=== PATIENT | male | born 1990 | race Caucasian/White ===

== ENCOUNTER 2019-04-27 05:03 | Emergency (ER) | payer BC ==
[~2019-04-27] VITALS: Ht 172 cm; Wt 68.2 kg
[~2019-04-27 05:03] MED LIST: CIPR-225 PO; HYDR-4226 PO; ONDA8TAB9 PO; SULF1TAB35 PO; TMSL.4C PO
[2019-04-27] MEDS ORDERED: NS IV 1000 ML 1,000 ML IV ONE (05:20)
[2019-04-27 05:28] LABS: BASOPHILS # (AUTO) 0.1 10^3/uL (0.0-0.1); BASOPHILS % (AUTO) 1 % (0-10); EOSINOPHILS # (AUTO) 0.4 10^3/uL (0.0-0.3); EOSINOPHILS % (AUTO) 6 % (0-10); HEMATOCRIT 45 % (40-54); LYMPHOCYTES % (AUTO) 47 % (12-44); MEAN CORPUSCULAR HEMOGLOBIN 30 PG (25-34); MEAN CORPUSCULAR HGB CONC 36 G/DL (32-36); MEAN CORPUSCULAR VOLUME 84 FL (80-99); MEAN PLATELET VOLUME 10.5 FL (7.4-10.4); MONOCYTES # (AUTO) 0.6 X 10^3 (0.0-1.0); MONOCYTES % (AUTO) 9 % (0-12); NEUTROPHILS # (AUTO) 2.3 X 10^3 (1.8-7.8); NEUTROPHILS % (AUTO) 37 % (42-75); PLATELET COUNT 181 10^3/uL (130-400); WHITE BLOOD COUNT 6.3 10^3/uL (4.3-11.0)
[2019-04-27] MEDS ORDERED: KETOROLAC 30 MG/ML VIAL IVP ONE (05:30)
[2019-04-27] MEDS ORDERED: ONDANSETRON 4 MG/2 ML (SDV) Z0FRAN IVP ONE (05:30)
--- NOTE | 2019-04-27 05:31 | NUR ---
Pt started to vomit yellow substance while I was in room drawing up meds.
[2019-04-27 05:48] LABS: ALANINE AMINOTRANSFERASE 24 U/L (0-55); ALBUMIN 4.4 GM/DL (3.2-4.5); ALKALINE PHOSPHATASE 71 U/L (40-136); BILIRUBIN,TOTAL 0.4 MG/DL (0.1-1.0); BUN/CREATININE RATIO 14; CARBON DIOXIDE 22 MMOL/L (21-32); CHLORIDE 108 MMOL/L (98-107); GFR ESTIMATED > 60; GLUCOSE 114 MG/DL (70-105); POTASSIUM 3.3 MMOL/L (3.6-5.0); SODIUM 142 MMOL/L (135-145)
[2019-04-27] MEDS ORDERED: fentaNYL INJECTION 100 MCG/2 ML AMP IVP ONE (06:00)
[2019-04-27] MEDS ORDERED: LACTATED RINGERS 1,000 ML IV ONE ×2 (06:13→06:17)
--- NOTE | 2019-04-27 06:32 | ED General ---
General Chief Complaint: General Problems/Pain Stated Complaint: POSS KIDNEY STONE Nursing Triage Note: Pt ambulates to RM 7 with c/o RLQ pain that started this morning. Pt states he has a Hx of kidney stones and this pain feels similar. Pt also reports some nausea, no vomiting yet. Nursing Sepsis Screen: No Definite Risk Source of Information: Patient Exam Limitations: No Limitations (SASCHA MORGAN MD) History of Present Illness Date Seen by Provider: Apr 27, 2019 Time Seen by Provider: 05:10 Initial Comments This 28-year-old gentleman presents to the emergency room with right flank pain and right groin pain that started early this morning. The pain woke him from sleep. He reports it feels similar to a prior episode of kidney stone. He has had kidney stone requiring lithotripsy in the past. He has associated nausea and vomiting. He denies fever. (SASCHA MROGAN MD) Allergies and Home Medications Allergies Coded Allergies: Penicillins (Verified Allergy, Mild, 04/27/19) Home Medications Ciprofloxacin HCl 500 Mg Tablet, 500 MG PO BID Prescribed by: MARISELA JONES on 05/06/15 180 Hydrocodone/Acetaminophen 1 Each Tablet, 1 EACH PO Q4H PRN for PAIN Prescribed by: MARISELA JONES on 05/06/15 1800 Ondansetron 8 Mg Tab.rapdis, 8 MG PO Q4H PRN for NAUSEA/VOMITING Prescribed by: MARISELA JONES on 05/06/15 1800 Tamsulosin HCl 0.4 Mg Cap, 0.4 MG PO DAILY Prescribed by: MARISELA JONES on 05/06/15 1800 Patient Home Medication List Home Medication List Reviewed: Yes (SASCHA MORGAN MD) Review of Systems Review of Systems Constitutional: no symptoms reported EENTM: no symptoms reported Respiratory: no symptoms reported Cardiovascular: no symptoms reported Gastrointestinal: see HPI Genitourinary: see HPI Musculoskeletal: no symptoms reported Skin: no symptoms reported Psychiatric/Neurological: No Symptoms Reported Hematologic/Lymphatic: No Symptoms Reported Immunological/Allergic: no symptoms reported (SASCHA MORGAN MD) Past Tqzlmjq-Hscxnr-Ggyhxd Hx Past Med/Social Hx: Reviewed Nursing Past Med/Soc Hx (SASCHA MORGAN MD) Patient Social History Alcohol Use: Rarely Uses Recreational Drug Use: No Smoking Status: Never a Smoker 2nd Hand Smoke Exposure: No Recent Foreign Travel: No Contact w/Someone Who Travel: No Recent Infectious Disease Expo: No Recent Hopitalizations: No Physical Abuse: No Sexual Abuse: No Mistreated: No Fear: No (SASCHA MORGAN MD) Immunizations Up To Date Date of Influenza Vaccine: Jan 05, 2015 (SASCHA MORGAN MD) Seasonal Allergies Seasonal Allergies: No (SASCHA MORGAN MD) Past Medical History Surgeries: Yes ("kidney stone blast") Renal (lithotripsy) Respiratory: No Cardiac: No Neurological: No Reproductive Disorders: No HIV/AIDS: No Genitourinary: Yes Kidney Stones Gastrointestinal: No Musculoskeletal: No (WILL SEE CHIROPRACTOR NEEDED) Endocrine: No Loss of Vision: Denies Hearing Impairment: Denies Cancer: No Psychosocial: No Integumentary: No Blood Disorders: No Adverse Reaction/Blood Tranf: No (SASCHA MORGAN MD) Physical Exam Vital Signs Vital Signs - First Documented 04/27/19 05:15 Temp 36.6 Pulse 88 Resp 20 B/P (MAP) 129/83 (98) Pulse Ox 100 O2 Delivery Room Air (TERESA SHIPLEY MD) Vital Signs Capillary Refill : Less Than 3 Seconds (SASCHA MORGAN MD) Height, Weight, BMI Height: 5'7.00" Weight: 125lbs. oz. 56.178938nm; 23.00 BMI Method: General Appearance: WD/WN, Mild Distress HEENT: PERRL/EOMI, Normal ENT Inspection Neck: Normal Inspection Respiratory: Lungs Clear, Normal Breath Sounds, No Accessory Muscle Use Cardiovascular: Regular Rate, Rhythm, No Edema, No Murmur, Normal Peripheral Pulses Gastrointestinal: Normal Bowel Sounds, No Organomegaly, Tenderness (right flank and mid abdomen) Extremity: Normal Inspection, No Pedal Edema Neurologic/Psychiatric: Alert, Oriented x3, No Motor/Sensory Deficits, Normal Mood/Affect, cytology technologist II-XII Norm as Tested (SASCHA MORGAN MD) Progress/Results/Core Measures Suspected Sepsis Recent Fever Within 48 Hours: No Infection Criteria Present: None New/Unexplained Altered Menta: No Sepsis Screen: No Definite Risk SIRS Temperature: Pulse: 88 Respiratory Rate: 20 Laboratory Tests 04/27/19 05:20: White Blood Count 6.3 Blood Pressure 129 /83 Mean: 98 Laboratory Tests 04/27/19 05:20: Creatinine 1.00, Platelet Count 181, Total Bilirubin 0.4 (SASCHA MORGAN MD) Results/Orders Lab Results Laboratory Tests Test 04/27/19 05:20 04/27/19 06:54 Range/Units White Blood Count 6.3 4.3-11.0 10^3/uL Red Blood Count 5.29 4.35-5.85 10^6/uL Hemoglobin 16.0 13.3-17.7 G/DL Hematocrit 45 40-54 % Mean Corpuscular Volume 84 80-99 FL Mean Corpuscular Hemoglobin 30 25-34 PG Mean Corpuscular Hemoglobin Concent 36 32-36 G/DL Red Cell Distribution Width 13.0 10.0-14.5 % Platelet Count 181 130-400 10^3/uL Mean Platelet Volume 10.5 H 7.4-10.4 FL Neutrophils (%) (Auto) 37 L 42-75 % Lymphocytes (%) (Auto) 47 H 12-44 % Monocytes (%) (Auto) 9 0-12 % Eosinophils (%) (Auto) 6 0-10 % Basophils (%) (Auto) 1 0-10 % Neutrophils # (Auto) 2.3 1.8-7.8 X 10^3 Lymphocytes # (Auto) 3.0 1.0-4.0 X 10^3 Monocytes # (Auto) 0.6 0.0-1.0 X 10^3 Eosinophils # (Auto) 0.4 H 0.0-0.3 10^3/uL Basophils # (Auto) 0.1 0.0-0.1 10^3/uL Sodium Level 142 135-145 MMOL/L Potassium Level 3.3 L 3.6-5.0 MMOL/L Chloride Level 108 H 98-107 MMOL/L Carbon Dioxide Level 22 21-32 MMOL/L Anion Gap 12 5-14 MMOL/L Blood Urea Nitrogen 14 7-18 MG/DL Creatinine 1.00 0.60-1.30 MG/DL Estimat Glomerular Filtration Rate > 60 BUN/Creatinine Ratio 14 Glucose Level 114 H 70-105 MG/DL Calcium Level 9.0 8.5-10.1 MG/DL Corrected Calcium 8.7 8.5-10.1 MG/DL Total Bilirubin 0.4 0.1-1.0 MG/DL Aspartate Amino Transf (AST/SGOT) 15 5-34 U/L Alanine Aminotransferase (ALT/SGPT) 24 0-55 U/L Alkaline Phosphatase 71 40-136 U/L Total Protein 7.0 6.4-8.2 GM/DL Albumin 4.4 3.2-4.5 GM/DL Urine Color YELLOW Urine Clarity CLEAR Urine pH 7.0 5-9 Urine Specific [place] 1.020 1.016-1.022 Urine Protein NEGATIVE NEGATIVE Urine Glucose (UA) NEGATIVE NEGATIVE Urine Ketones NEGATIVE NEGATIVE Urine Nitrite NEGATIVE NEGATIVE Urine Bilirubin NEGATIVE NEGATIVE Urine Urobilinogen 0.2 < = 1.0 MG/DL Urine Leukocyte Esterase NEGATIVE NEGATIVE Urine RBC (Auto) 3+ H NEGATIVE Urine RBC TNTC H /HPF Urine WBC 2-5 /HPF Urine Squamous Epithelial Cells RARE /HPF Urine Crystals NONE /LPF Urine Bacteria TRACE /HPF Urine Casts NONE /LPF Urine Mucus MODERATE H /LPF Urine Culture Indicated YES (TERESA SHIPLEY MD) My Orders Orders - TERESA SHIPLEY MD Ct Abd/Pelvis Wo(Kidney Stone) (04/27/19 07:24) Abdomen/Kub 1view (04/27/19 07:29) (TERESA SHIPLEY MD) Medications Given in ED Current Medications Medications Dose Ordered Sig/Hipolito Route Start Time Stop Time Status Last Admin Dose Admin Fentanyl Citrate 75 mcg ONCE ONCE IVP 04/27/19 06:00 04/27/19 06:01 DC 04/27/19 06:02 75 MCG Ketorolac Tromethamine 30 mg ONCE ONCE IVP 04/27/19 05:30 04/27/19 05:31 DC 04/27/19 05:29 30 MG Lactated Ringer's 1,000 ml @ 0 mls/hr Q0M ONCE IV 04/27/19 06:17 04/27/19 06:18 DC 04/27/19 06:21 0 MLS/HR Ondansetron HCl 8 mg ONCE ONCE IVP 04/27/19 05:30 04/27/19 05:31 DC 04/27/19 05:29 8 MG Sodium Chloride 1,000 ml @ 0 mls/hr Q0M ONCE IV 04/27/19 05:20 04/27/19 05:21 DC 04/27/19 05:29 0 MLS/HR (TERESA SHIPLEY MD) Vital Signs/I&O 04/27/19 05:15 Temp 36.6 Pulse 88 Resp 20 B/P (MAP) 129/83 (98) Pulse Ox 100 O2 Delivery Room Air (TERESA SHIPLEY MD) Vital Signs/I&O Capillary Refill : Less Than 3 Seconds (SASCHA MORGAN MD) Blood Pressure Mean: 98 Progress Note : Time: 06:33 Progress Note Patient was seen and examined. Toradol was given for pain. Zofran was given for nausea and vomiting. Toradol did not resolve his pain and he requested additional medication. Fentanyl was ordered. Care of this patient is being transitioned to Dr. Shipley at this time. Urinalysis is pending. Once UA is reviewed, type of imaging may be determined. (SASCHA MORGAN MD) Progress Note : Progress Note 0730: Patient did give UA which was positive for blood. CT abdomen and pelvis kidney stone protocol ordered as well as KUB. 0840: CT complete and does show 5 mm proximal right ureteral stone without difficulty hydronephrosis. Does have history with Dr. Du. I will send a copy of the chart over to him. Pain is controlled currently. 0853: KUB done. Discharged home with return precautions. Patient verbalize understanding instructions and agreement with plan. (TERESA SHIPLEY MD) Diagnostic Imaging Diagonstic Imaging: CT Plain Films/CT/US/NM/MRI: abdomen, pelvis Comments [facility], [place] NAME: EL[facility] AGUIAR [facility] REC#: [id number] PT STATUS: REG ER : 1990 PHYSICIAN: TERESA SHIPLEY MD ADMIT DATE: 04/27/19/ER Draft Date of Exam:04/27/19 CT ABD/PELVIS WO(KIDNEY STONE) PROCEDURE: CT urinary tract, rule out kidney stone. TECHNIQUE: Multiple contiguous axial images were obtained through the abdomen and pelvis without the use of intravenous contrast. Auto Exposure Controls were utilized during the CT exam to meet ALARA standards for radiation dose reduction. DATE: April 27, 2019. COMPARISON: KUB May 23, 2015. INDICATION: 28-year-old male, right-sided abdominal pain, hematuria. FINDINGS: There are limitations for evaluation of the abdominal organs, neoplastic processes, abscess, and limited evaluation of the vasculature relating to the lack of intravenous contrast. The visualized portions of the lung bases are clear. The heart is not enlarged. There is no pericardial effusion. The liver is normal in size and contour. The gallbladder is unremarkable. There is no intrahepatic or extrahepatic bile duct dilation. The main pancreatic duct is not abnormally dilated. Unremarkable noncontrast evaluation of the pancreatic parenchyma. The spleen is normal in size. There is a small accessory splenule. The adrenal glands are unremarkable. There are nonobstructing renal stones bilaterally. There is a stone in the right proximal ureter on axial image 52 which measures 5 mm in size. There is no additionally identified ureteral stone. There is no joaquin hydronephrosis. Urinary bladder is unremarkable in appearance. The intestinal tract is not distended. The appendix is unremarkable. There is no free intraperitoneal air. There is no drainable fluid collection. There is no free pelvic fluid. There is no identified abnormally enlarged lymph node in the abdomen or pelvis which meets CT size criteria for adenopathy. There is no identified acute bony abnormality. IMPRESSION: CT ABDOMEN AND PELVIS. 1. 5 mm stone in the right proximal ureter without joaquin hydronephrosis. Additional nonobstructing renal stones bilaterally. Dictated on workstation # [id number] Dict: 04/27/19 0751 Trans: 04/27/19 0823 TY [id number] Interpreted by: CONSUELO TURNER MD Electronically signed by: (TERESA SHIPLEY MD) Departure Impression Primary Impression: Right ureteral calculus Disposition: 01 HOME, SELF-CARE Condition: Improved Departure-Patient Inst. Decision time for Depature: 08:54 (TERESA SHIPLEY MD) Referrals: NO,LOCAL PHYSICIAN (PCP) Primary Care Physician KENTON DU MD Patient Instructions: How to Strain Your Urine, Kidney Stones (DC) Add. Discharge Instructions: All discharge instructions reviewed with patient and/or family. Voiced understanding. You may take ibuprofen 600 mg every 8 hours as needed for pain. You may take Tylenol/acetaminophen 1000 mg (2 strength tablets) every 6-8 hours as needed for pain. Do not take this with the prescribed pain medicine as they both have acetaminophen in them. Drink plenty of fluids. Return for worse pain, fever, vomiting, weakness, breathing problems or other concerns as needed. Scripts Hydrocodone Bit/Acetaminophen (Hydrocodone/Acetaminophen 5/325mg Tablet) 1 Tab Tab 1 EACH PO Q4-6HR PRN for PAIN-MODERATE MDD 10 for 3 Days, #15 TAB Prov: TERESA SHIPLEY MD 04/27/19 Ciprofloxacin HCl (Ciprofloxacin HCl) 500 Mg Tablet 500 MG PO BID, #14 TAB Prov: TERESA SHIPLEY MD 04/27/19 Copy Copies To 1: KENTON DU MD, JOSHUA T MD Apr 27, 2019 06:32 TERESA SHIPLEY MD Apr 27, 2019 08:52
[2019-04-27 07:02] LABS: BILIRUBIN,URINE NEGATIVE (NEGATIVE); CLARITY,URINE CLEAR; COLOR,URINE YELLOW; GLUCOSE, URINE (UA) NEGATIVE (NEGATIVE); KETONES,URINE NEGATIVE (NEGATIVE); LEUKOCYTE ESTERASE ,URINE NEGATIVE (NEGATIVE); NITRITE,URINE NEGATIVE (NEGATIVE); PROTEIN,URINE NEGATIVE (NEGATIVE)
[2019-04-27 07:14] LABS: BACTERIA,URINE TRACE /HPF; RBC,URINE TNTC /HPF; SQUAMOUS EPITHELIAL CELL,UR RARE /HPF
--- NOTE | 2019-04-27 07:27 | NUR ---
TO ROOM INFOMED PATIENT THAT DR HAD ORDERED CT.
--- NOTE | 2019-04-27 08:23 | Diagnostic Imaging Report ---
PROCEDURE: CT urinary tract, rule out kidney stone. TECHNIQUE: Multiple contiguous axial images were obtained through the abdomen and pelvis without the use of intravenous contrast. Auto Exposure Controls were utilized during the CT exam to meet ALARA standards for radiation dose reduction. DATE: April 27, 2019. COMPARISON: KUB May 23, 2015. INDICATION: 28-year-old male, right-sided abdominal pain, hematuria. FINDINGS: There are limitations for evaluation of the abdominal organs, neoplastic processes, abscess, and limited evaluation of the vasculature relating to the lack of intravenous contrast. The visualized portions of the lung bases are clear. The heart is not enlarged. There is no pericardial effusion. The liver is normal in size and contour. The gallbladder is unremarkable. There is no intrahepatic or extrahepatic bile duct dilation. The main pancreatic duct is not abnormally dilated. Unremarkable noncontrast evaluation of the pancreatic parenchyma. The spleen is normal in size. There is a small accessory splenule. The adrenal glands are unremarkable. There are nonobstructing renal stones bilaterally. There is a stone in the right proximal ureter on axial image 52 which measures 5 mm in size. There is no additionally identified ureteral stone. There is no joaquin hydronephrosis. Urinary bladder is unremarkable in appearance. The intestinal tract is not distended. The appendix is unremarkable. There is no free intraperitoneal air. There is no drainable fluid collection. There is no free pelvic fluid. There is no identified abnormally enlarged lymph node in the abdomen or pelvis which meets CT size criteria for adenopathy. There is no identified acute bony abnormality. IMPRESSION: CT ABDOMEN AND PELVIS. 1. 5 mm stone in the right proximal ureter without joaquin hydronephrosis. Additional nonobstructing renal stones bilaterally. Dictated by: Dictated on workstation # [id number]
[2019-04-27] MEDS ORDERED: CIPR500T4 PO (08:59)
[2019-04-27] MEDS ORDERED: ACHD5005 PO (08:59)
[2019-04-27 09:05] VITALS: BP 122/85
--- NOTE | 2019-04-27 09:33 | Diagnostic Imaging Report ---
INDICATION: Right upper quadrant pain starting earlier today. TECHNIQUE: 2 supine view of the abdomen 8:59 AM CORRELATION STUDY: Renal colic CT 04/27/2019 FINDINGS: Moderate amount of overlying bowel gas and stool is present obscuring detail. Approximately 5 to 6 mm calcification in the right mid abdomen likely corresponds to the recently identified proximal right ureteral stone demonstrates no significant interval migration. Additional punctate stones over the left renal silhouette. Calcification of the left hemipelvis of no significance. IMPRESSION: 1. Approximately 5-6 mm calcification in the right mid abdomen consistent with the recently identified proximal right ureteral stone. No significant interval progression since previous CT study. Dictated by: Dictated on workstation # [id number]
== END 2019-04-27 09:05 | disposition home or self-care (01) ==
LOC: EDUNIT# 05:03 → ER 05:07
DX: N20.1 Calculus of ureter (principal); Z88.0 Allergy status to penicillin
CPT/HCPCS: 36415; 74018; 74176; 80053; 81000; 85025; 87088

== ENCOUNTER → 2019-04-30 | Outpatient (CLI) | payer BC ==
[~2019-04-30] MED LIST changes: +ACHD5005 PO; +CIPR500T4 PO; +KETO10TA PO; +NITR-65 PO; +TRM50T PO
--- NOTE | 2019-04-30 11:07 | Diagnostic Imaging Report ---
INDICATION: Ureteral calculus. COMPARISON: 04/27/2019. FINDINGS: Single supine radiographic view of the abdomen was obtained and demonstrates 5 mm calculus in the expected location of the right UPJ. Punctate nonobstructive calculi are also identified projecting over the inferior pole of the left kidney. There has been no significant interval change when compared to prior exam. Small bowel loops are nondistended. There is no large collection of free intraperitoneal air. IMPRESSION: 1. Bilateral nephrolithiasis as described above. Dictated by: Dictated on workstation # [id number]
== END ==
LOC: RAD 09:57
PROVIDERS: ATTEND Urology
DX: N20.2 Calculus of kidney with calculus of ureter (principal)
CPT/HCPCS: 74018

== ENCOUNTER 2019-05-02 19:29 | Emergency (ER) | payer BC ==
[~2019-05-02] VITALS: Ht 173 cm; Wt 70.0 kg
[~2019-05-02 19:29] MED LIST changes: -KETO10TA PO; -NITR-65 PO; -TRM50T PO
[2019-05-02] MEDS ORDERED: KETOROLAC 30 MG/ML VIAL IVP ONE (19:45)
[2019-05-02] MEDS ORDERED: NS IV 1000 ML 1,000 ML IV SCH (19:45)
--- NOTE | 2019-05-02 20:00 | ED GU-Male ---
General Chief Complaint: Abdominal/GI Problems Stated Complaint: KIDNEY PAIN Nursing Triage Note: Patient reports having a kidney stone on the L side that was diagnosed here 04/27/2019. States was evaluated by Dr. White on Friday04/30/2019 and has a procedure scheduled on Friday05/04/2019. Patient reports that the medication he has at home has not been helping the pain Source: patient Exam Limitations: no limitations History of Present Illness Date Seen by Provider: May 02, 2019 Time Seen by Provider: 19:58 Initial Comments To ER with pain on the right side that began on 04/27/19, seen here diagnosed with a kidney stone. Saw Dr. White on Friday, scheduled for either lithotripsy or basketing on Friday of this week (today is Friday). He took 2 extra strength Tylenol this afternoon at about 3, no improvement. He's been taking Tylenol consistently for pain control. He then took a hydrocodone at 6 this evening, vomited 45 minutes later. Still no relief of pain. Timing/Duration: getting worse Severity/Quality: moderate Location: right flank Radiation: none Activities at Onset: none Prior Genitourinary Problems: none Associated Symptoms: denies symptoms Allergies and Home Medications Allergies Coded Allergies: Penicillins (Verified Allergy, Mild, 04/27/19) Home Medications Ciprofloxacin HCl 500 Mg Tablet, 500 MG PO BID Prescribed by: MARISELA JONES on 05/06/151805 Ciprofloxacin HCl 500 Mg Tablet, 500 MG PO BID Prescribed by: TEERSA SHIPLEY on 04/27/19 0859 Hydrocodone Bit/Acetaminophen 1 Tab Tab, 1 EACH PO Q4-6HR PRN for PAIN-MODERATE Prescribed by: TERESA SHIPLEY on 04/27/19 0859 Hydrocodone/Acetaminophen 1 Each Tablet, 1 EACH PO Q4H PRN for PAIN Prescribed by: MARISELA JONES on 05/06/15 1800 Ketorolac Tromethamine 10 Mg Tablet, 10 MG PO TID PRN for PAIN-MODERATE (5-7) Prescribed by: MARISELA JONES on 05/02/192020 Ondansetron 8 Mg Tab.rapdis, 8 MG PO Q4H PRN for NAUSEA/VOMITING Prescribed by: MARISELA JONES on 05/06/15 1800 Tamsulosin HCl 0.4 Mg Cap, 0.4 MG PO DAILY Prescribed by: MARISELA JONES on 05/06/15 1800 Patient Home Medication List Home Medication List Reviewed: Yes Review of Systems Review of Systems Constitutional: see HPI; No chills, No fever EENTM: see HPI Respiratory: no symptoms reported Genitourinary: see HPI Musculoskeletal: no symptoms reported Skin: no symptoms reported Psychiatric/Neurological: No Symptoms Reported Endocrine: No Symptoms Reported Past Xfpvkbc-Jecwje-Pmvsmq Hx Patient Social History Alcohol Use: Denies Use Recreational Drug Use: No 2nd Hand Smoke Exposure: No Recent Foreign Travel: No Contact w/Someone Who Travel: No Recent Infectious Disease Expo: No Recent Hopitalizations: No Immunizations Up To Date Date of Influenza Vaccine: Jan 05, 2015 Seasonal Allergies Seasonal Allergies: No Past Medical History Surgeries: Yes ("kidney stone blast") Renal Respiratory: No Cardiac: No Neurological: No Reproductive Disorders: No HIV/AIDS: No Genitourinary: Yes Kidney Stones Gastrointestinal: No Musculoskeletal: No (WILL SEE CHIROPRACTOR NEEDED) Endocrine: No Loss of Vision: Denies Hearing Impairment: Denies Cancer: No Psychosocial: No Integumentary: No Blood Disorders: No Adverse Reaction/Blood Tranf: No Physical Exam Vital Signs Vital Signs - First Documented 05/02/19 19:40 Temp 36.4 Pulse 92 Resp 18 B/P (MAP) 137/89 (105) Pulse Ox 98 Capillary Refill : Less Than 3 Seconds Height, Weight, BMI Height: 5'7.00" Weight: 125lbs. oz. 56.090765zc; 23.00 BMI Method: General Appearance: WD/WN, no apparent distress HEENT: PERRL/EOMI, normal ENT inspection Respiratory: normal breath sounds, no respiratory distress, no accessory muscle use Gastrointestinal: normal bowel sounds, non tender, soft Neurologic/Psychiatric: alert, normal mood/affect, oriented x 3 Skin: normal color, warm/dry Progress/Results/Core Measures Suspected Sepsis Recent Fever Within 48 Hours: No Infection Criteria Present: None New/Unexplained Altered Menta: No Sepsis Screen: No Definite Risk SIRS Temperature: Pulse: 92 Respiratory Rate: 18 Laboratory Tests 05/02/19 19:57: White Blood Count 12.6H Blood Pressure 137 /89 Mean: 105 Laboratory Tests 05/02/19 19:57: Creatinine 1.24, Platelet Count 191, Total Bilirubin 0.4 Results/Orders Lab Results Laboratory Tests Test 05/02/19 19:55 05/02/19 19:57 Range/Units Urine Color YELLOW Urine Clarity SL CLOUDY Urine pH 7.0 5-9 Urine Specific [place] 1.020 1.016-1.022 Urine Protein NEGATIVE NEGATIVE Urine Glucose (UA) NEGATIVE NEGATIVE Urine Ketones NEGATIVE NEGATIVE Urine Nitrite NEGATIVE NEGATIVE Urine Bilirubin NEGATIVE NEGATIVE Urine Urobilinogen 0.2 < = 1.0 MG/DL Urine Leukocyte Esterase NEGATIVE NEGATIVE Urine RBC (Auto) TRACE-I NEGATIVE Urine RBC 5-10 H /HPF Urine WBC 0-2 /HPF Urine Squamous Epithelial Cells NONE /HPF Urine Crystals PRESENT H /LPF Urine Amorphous Sediment MOD FARSHAD PHOSPHATE H /LPF Urine Bacteria TRACE /HPF Urine Casts PRESENT /LPF Urine Hyaline Casts RARE /LPF Urine Mucus SMALL H /LPF Urine Culture Indicated NO White Blood Count 12.6 H 4.3-11.0 10^3/uL Red Blood Count 5.24 4.35-5.85 10^6/uL Hemoglobin 15.8 13.3-17.7 G/DL Hematocrit 44 40-54 % Mean Corpuscular Volume 84 80-99 FL Mean Corpuscular Hemoglobin 30 25-34 PG Mean Corpuscular Hemoglobin Concent 36 32-36 G/DL Red Cell Distribution Width 12.9 10.0-14.5 % Platelet Count 191 130-400 10^3/uL Mean Platelet Volume 10.7 H 7.4-10.4 FL Neutrophils (%) (Auto) 75 42-75 % Lymphocytes (%) (Auto) 16 12-44 % Monocytes (%) (Auto) 6 0-12 % Eosinophils (%) (Auto) 3 0-10 % Basophils (%) (Auto) 0 0-10 % Neutrophils # (Auto) 9.4 H 1.8-7.8 X 10^3 Lymphocytes # (Auto) 2.0 1.0-4.0 X 10^3 Monocytes # (Auto) 0.7 0.0-1.0 X 10^3 Eosinophils # (Auto) 0.4 H 0.0-0.3 10^3/uL Basophils # (Auto) 0.1 0.0-0.1 10^3/uL Sodium Level 140 135-145 MMOL/L Potassium Level 3.5 L 3.6-5.0 MMOL/L Chloride Level 106 98-107 MMOL/L Carbon Dioxide Level 23 21-32 MMOL/L Anion Gap 11 5-14 MMOL/L Blood Urea Nitrogen 18 7-18 MG/DL Creatinine 1.24 0.60-1.30 MG/DL Estimat Glomerular Filtration Rate > 60 BUN/Creatinine Ratio 15 Glucose Level 124 H 70-105 MG/DL Calcium Level 9.7 8.5-10.1 MG/DL Corrected Calcium 8.5-10.1 MG/DL Total Bilirubin 0.4 0.1-1.0 MG/DL Aspartate Amino Transf (AST/SGOT) 47 H 5-34 U/L Alanine Aminotransferase (ALT/SGPT) 82 H 0-55 U/L Alkaline Phosphatase 71 40-136 U/L Total Protein 7.4 6.4-8.2 GM/DL Albumin 4.6 H 3.2-4.5 GM/DL My Orders Orders - MARISELA JONES APRN Cbc With Automated Diff (05/02/19 19:30) Comprehensive Metabolic Panel (05/02/19 19:30) Ed Iv/Invasive Line Start (05/02/19 19:30) Ns Iv 1000 Ml (Sodium Chloride 0.9%) (05/02/19 19:45) Ketorolac Injection (Toradol Injection) (05/02/19 19:45) Abdomen/Kub 1view (05/02/19 20:01) Rx-Ondansetron Po (Rx-Zofran Po) (05/02/19 20:22) Medications Given in ED Current Medications Medications Dose Ordered Sig/Hipolito Route Start Time Stop Time Status Last Admin Dose Admin Ketorolac Tromethamine 15 mg ONCE ONCE IVP 05/02/19 19:45 05/02/19 19:47 DC 05/02/19 19:59 15 MG Vital Signs/I&O 05/02/19 19:40 Temp 36.4 Pulse 92 Resp 18 B/P (MAP) 137/89 (105) Pulse Ox 98 Capillary Refill : Less Than 3 Seconds Blood Pressure Mean: 105 Departure Impression Primary Impression: Right ureteral calculus Disposition: HOME, SELF-CARE Condition: Improved Departure-Patient Inst. Decision time for Depature: 20:21 Referrals: NO,LOCAL PHYSICIAN (PCP/Family) Primary Care Physician Patient Instructions: Kidney Stones (DC) Add. Discharge Instructions: 1. Take medication as directed 2. Return to ER for any concerns 3. Cut the Tylenol out of your regimen, your liver enzymes are little elevated.,replace with ibuprofen or the ketorolac prescribed. All discharge instructions reviewed with patient and/or family. Voiced understanding. Scripts Ketorolac Tromethamine (Ketorolac Tromethamine) 10 Mg Tablet 10 MG PO TID PRN for PAIN-MODERATE (5-7), #9 TAB Prov: MARISELA JONES APRN 05/02/19 Work/School Note: Work Release Form Date Seen in the Emergency Department: May 02, 2019 Return to Work: May 05, 2019 MARISELA JONES APRN May 02, 2019 20:00
[2019-05-02 20:09] LABS: BILIRUBIN,URINE NEGATIVE (NEGATIVE); COLOR,URINE YELLOW; GLUCOSE, URINE (UA) NEGATIVE (NEGATIVE); KETONES,URINE NEGATIVE (NEGATIVE); LEUKOCYTE ESTERASE ,URINE NEGATIVE (NEGATIVE); NITRITE,URINE NEGATIVE (NEGATIVE); PROTEIN,URINE NEGATIVE (NEGATIVE)
[2019-05-02 20:11] LABS: BASOPHILS # (AUTO) 0.1 10^3/uL (0.0-0.1); BASOPHILS % (AUTO) 0 % (0-10); EOSINOPHILS # (AUTO) 0.4 10^3/uL (0.0-0.3); EOSINOPHILS % (AUTO) 3 % (0-10); HEMATOCRIT 44 % (40-54); HEMOGLOBIN 15.8 G/DL (13.3-17.7); LYMPHOCYTES % (AUTO) 16 % (12-44); MEAN CORPUSCULAR HEMOGLOBIN 30 PG (25-34); MEAN CORPUSCULAR HGB CONC 36 G/DL (32-36); MEAN CORPUSCULAR VOLUME 84 FL (80-99); MEAN PLATELET VOLUME 10.7 FL (7.4-10.4); MONOCYTES # (AUTO) 0.7 X 10^3 (0.0-1.0); MONOCYTES % (AUTO) 6 % (0-12); NEUTROPHILS # (AUTO) 9.4 X 10^3 (1.8-7.8); NEUTROPHILS % (AUTO) 75 % (42-75); PLATELET COUNT 191 10^3/uL (130-400); RED CELL DISTRIBUTION WIDTH 12.9 % (10.0-14.5); WHITE BLOOD COUNT 12.6 10^3/uL (4.3-11.0)
[2019-05-02 20:15] LABS: BACTERIA,URINE TRACE /HPF; CLARITY,URINE SL CLOUDY; WBC,URINE 0-2 /HPF
[2019-05-02 20:16] LABS: AMORPHOUS SEDIMENT,UR MOD AMOR PHOSPHATE /LPF; HYALINE CASTS, URINE RARE /LPF
[2019-05-02] MEDS ORDERED: KETO10TA PO (20:21)
[2019-05-02] MEDS ORDERED: RX-ONDANSETRON 4 MG ODT (ZOFRAN) PPK #4 PO STA (20:22)
[2019-05-02 20:26] LABS: ALANINE AMINOTRANSFERASE 82 U/L (0-55); ALBUMIN 4.6 GM/DL (3.2-4.5); ALKALINE PHOSPHATASE 71 U/L (40-136); BILIRUBIN,TOTAL 0.4 MG/DL (0.1-1.0); BUN/CREATININE RATIO 15; CALCIUM 9.7 MG/DL (8.5-10.1); CARBON DIOXIDE 23 MMOL/L (21-32); CHLORIDE 106 MMOL/L (98-107); CREATININE SERUM 1.24 MG/DL (0.60-1.30); GFR ESTIMATED > 60; GLUCOSE 124 MG/DL (70-105); POTASSIUM 3.5 MMOL/L (3.6-5.0); SODIUM 140 MMOL/L (135-145); TOTAL PROTEIN 7.4 GM/DL (6.4-8.2)
--- NOTE | 2019-05-02 20:26 | Diagnostic Imaging Report ---
INDICATION: Right flank pain Since 04/30/2019, there are continued bilateral calcifications at the level of the kidneys. Largest on the right may be within the right renal collecting system or proximal ureter and measures 0.5 cm in diameter. Several additional calcification project over the mid and inferior pole portions of the left kidney. Tiny calcification in the left hemipelvis is similar to the previous study and likely represents a phlebolith. IMPRESSION: Overall no apparent change in bilateral nephrolithiasis with stone in right kidney possibly within the renal collecting system or near ureteropelvic junction. Dictated by: Dictated on workstation # [id number]
[2019-05-02 20:42] VITALS: BP 135/85
== END 2019-05-02 20:43 | disposition home or self-care (01) ==
LOC: EDUNIT# 19:29 → ER 19:31
DX: N20.1 Calculus of ureter (principal); Z88.0 Allergy status to penicillin
CPT/HCPCS: 36415; 74018; 80053; 81000; 85025; 96361; 96374

== ENCOUNTER 2019-05-03 05:28 | Outpatient (CLI) | payer BC ==
[~2019-05-03] VITALS: Ht 172.7 cm; Wt 70.5 kg
[~2019-05-03 05:28] MED LIST changes: +KETO10TA PO
[2019-05-04] MEDS ORDERED: TRM50T PO (09:11)
[2019-05-04] MEDS ORDERED: NITR-65 PO (09:11)
== END 2019-05-03 11:53 | disposition home or self-care (01) ==
LOC: PREOP 05:28
PROVIDERS: ATTEND Urology
DX: Z01.818 Encounter for other preprocedural examination (principal)

== ENCOUNTER 2019-05-04 05:54 | Day surgery (SDC) | payer BC ==
[2019-05-04] VITALS (8 sets, daily range): BP systolic 86–124; BP diastolic 50–89
[~2019-05-04] VITALS: Ht 172.7 cm; Wt 70.5 kg
[2019-05-04] MEDS ORDERED: LACTATED RINGERS 1,000 ML IV PRN (06:18)
[2019-05-04] MEDS ORDERED: LEVOFLOXACIN 250 MG/50 ML IVPB 50 ML IV ONE (06:30)
[2019-05-04] MEDS ORDERED: LIDOCAINE PF 2% 5 ML (XYLOCAINE) VIAL ONE (06:50)
[2019-05-04] MEDS ORDERED: ONDANSETRON 4 MG/2 ML (SDV) Z0FRAN ONE (06:50)
[2019-05-04] MEDS ORDERED: proPOfol 200 MG/20 ML (DIPRIVAN) VIAL IV ONE (06:50)
[2019-05-04] MEDS ORDERED: fentaNYL INJECTION 100 MCG/2 ML AMP ONE (06:51)
[2019-05-04] MEDS ORDERED: KETOROLAC 30 MG/ML VIAL ONE (06:51)
[2019-05-04] MEDS ORDERED: FUROSEMIDE 40 MG/4 ML INJ (LASIX) ONE (06:51)
[2019-05-04] MEDS ORDERED: MIDAZOLAM 2 MG/2 ML (VERSED) VIAL ONE (06:51)
--- NOTE | 2019-05-04 07:06 | Progress Note-Pre Operative ---
Pre-Operative Progress Note H&P Reviewed The H&P was reviewed, patient examined and no changes noted. Date Seen by Provider: May 04, 2019 Time Seen by Provider: 07:05 Date H&P Reviewed: May 04, 2019 Time H&P Reviewed: 07:06 Pre-Operative Diagnosis: RT PROXIMAL URETERAL STONE AND BILATERAL RENAL STONES KENTON DU MD May 04, 2019 07:06
--- NOTE | 2019-05-04 07:35 | Progress Note-Post Operative ---
Post-Operative Progess Note Surgeon (s)/Director Physical Therapy (s) Surgeon KENTON DU MD Director Physical Therapy: NONE Pre-Operative Diagnosis RT PROXIMAL URETERAL STONE AND BILATERAL RENAL STONES Post-Operative Diagnosis SAME Procedure & Operative Findings Date of Procedure 05/04/19 Procedure Performed/Findings RT ESWL Anesthesia Type GENERAL Estimated Blood Loss Estimated blood loss (mL): NONE Specimens/Packing Specimens Removed NONE Packing: NONE KENTON DU MD May 04, 2019 07:35
--- NOTE | 2019-05-04 07:38 | Diagnostic Imaging Report ---
CLINICAL INDICATION: Patient with right ESWL. EXAM: X-ray of the abdomen supine view. COMPARISON: X-ray of the abdomen dated 05/02/2019. FINDINGS AND IMPRESSION: 1: Stable 5 mm calcification seen to the right of the L4 vertebral body level. 2: There is also subtle roughly 6 mm calcification seen to the right of the L3 vertebra which is not well delineated on the prior study. 3: Stable focal calcifications overlying the left renal shadow. 4: Stable suspected phlebolith in the left pelvis. 5: The remainder of this exam shows no significant interval change compared to the prior study of comparison. Dictated by: Dictated on workstation # [id number]
--- NOTE | 2019-05-04 07:38 | Discharge Inst-Urology ---
Discharge Inst-Urology Reconcile Patient Problems Problems Reviewed?: Yes Final Diagnosis RT URETERAL AND RENAL STONES Patient Instructions/Follow Up Plan/Assessment/Instructions Please make appointment to been seen in office Wednesday 05/17, KUB prior to it KUB on way home Post ESWL instructions Increase oral fluids for 48 hours and then as needed. Diet and Activity as tolerated. If questions or concerns contact your physician Or seek help at emergency department. KENTON DU MD May 04, 2019 07:37
[2019-05-04] MEDS ORDERED: SEVOFLURANE (ULTANE) 15 ML INHAL SOLN ONE ×2 (07:48→07:59)
[2019-05-04] MEDS ORDERED: ONDANSETRON 4 MG/2 ML (SDV) Z0FRAN IVP PRN (08:15)
[2019-05-04] MEDS ORDERED: HYDROmorphone 2 MG/ML VIAL (DILAUDID) IV ONE (08:15)
[2019-05-04] MEDS ORDERED: PROMETHAZINE INJ 25 MG/ML (PHENERGAN) AMP IVP ONE (08:15)
[2019-05-04] MEDS ORDERED: morphine INJ 10 MG/ML 1ML (SYR OR VIAL) IVP ONE (08:15)
[2019-05-04] MEDS ORDERED: TRM50T PO (09:11)
[2019-05-04] MEDS ORDERED: NITR-65 PO (09:11)
--- NOTE | 2019-05-04 10:28 | Diagnostic Imaging Report ---
INDICATION: Nephrolithiasis. COMPARISON: 05/04/2019. FINDINGS: There is a persistent 5 mm stone fragment at the level of the L4 pedicle. There appear to be two smaller stone fragments just above the right L3 transverse process. These appear essentially unchanged when compared to the prior examination. The bowel gas pattern is nonspecific. There is no free air. IMPRESSION: There are several persistent right-sided stones as described. Dictated by: Dictated on workstation # [id number]
--- NOTE | 2019-05-04 10:30 | Anesthesia-General Post-Op ---
General Patient Condition Mental Status/LOC: Same as Preop Cardiovascular: Satisfactory Nausea/Vomiting: Absent Respiratory: Satisfactory Pain: Controlled Complications: Absent Post Op Complications Complications None Follow Up Care/Instructions Patient Instructions None needed. Anesthesia/Patient Condition Patient Condition Patient is doing well, no complaints, stable vital signs, no apparent adverse anesthesia problems. No complications reported per nursing. JOSEPH VANG CRNA May 04, 2019 10:30
--- NOTE | 2019-05-04 10:46 | OPERATIVE REPORT ---
DATE OF SERVICE: 05/04/2019 PREOPERATIVE DIAGNOSIS: Right ureteral and bilateral renal stones. POSTOPERATIVE DIAGNOSIS: Right ureteral and bilateral renal stones. OPERATION PERFORMED: Right ESWL. SURGEON: Jaswinder Du MD. ANESTHESIA: General. COMPLICATIONS: None. DESCRIPTION OF PROCEDURE: Under satisfactory general anesthesia, the patient in supine position on the ESWL table, the right proximal ureteral stone was localized. At no time during the procedure whether under fluoroscopy or still pictures, we could visualize another calcification more proximal to it, went ahead and delivered a total of 3000 shocks at kV of 6. There was complete fragmentation of the stone and again no other calcifications noted above it or below it. The patient received 40 mg of Lasix and 30 mg of Toradol IV at the end of the procedure. He tolerated the procedure and anesthesia well and was sent to recovery room in stable condition. Job ID: [id number] DocumentID: [id number] Dictated Date: 05/04/2019 07:54:48 Head Scorer Date: 05/04/2019 10:45:35 Dictated By: JASWINDER DU MD
== END 2019-05-04 09:41 | disposition home or self-care (01) ==
LOC: SDC 05:54
PROVIDERS: ATTEND Urology
DX: N20.2 Calculus of kidney with calculus of ureter (principal); Z88.0 Allergy status to penicillin
CPT/HCPCS: 74018; 87081

== ENCOUNTER → 2019-05-17 | Outpatient (CLI) | payer BC ==
[~2019-05-17] MED LIST changes: +NITR-65 PO; +PHEN-640 PO; +TRM50T PO
--- NOTE | 2019-05-17 16:35 | Diagnostic Imaging Report ---
REASON FOR EXAM: RIGHT URETERAL STONE POST ESWL COMPARISON: 05/04/2019. TECHNIQUE: Frontal supine view of the abdomen FINDINGS: Redemonstration of the urolithiasis in the mid right ureter which does not demonstrate significant migration. No new calcifications are visualized. No evidence of bowel obstruction or large collections of free intraperitoneal air. No acute osseous abnormalities. IMPRESSION: Redemonstration of the urolithiasis in the mid right ureter without significant change in position. No new calculi are seen. Dictated by: Dictated on workstation # [id number]
== END ==
LOC: RAD 13:14
PROVIDERS: ATTEND Urology
DX: N20.1 Calculus of ureter (principal); Z98.890 Other specified postprocedural states
CPT/HCPCS: 74018

== ENCOUNTER → 2019-05-18 | Outpatient (CLI) | payer BC ==
[~2019-05-18] VITALS: Ht 172 cm; Wt 70.4 kg
== END | disposition home or self-care (01) ==
LOC: PREOP 06:47
PROVIDERS: ATTEND Urology
DX: Z01.818 Encounter for other preprocedural examination (principal)

== ENCOUNTER 2019-05-19 07:26 | Day surgery (SDC) | payer BC ==
[~2019-05-19] VITALS: Ht 172 cm; Wt 70.4 kg
[2019-05-19] VITALS (11 sets, daily range): BP systolic 113–133; BP diastolic 79–87
[~2019-05-19 07:26] MED LIST changes: -PHEN-640 PO
[2019-05-19] MEDS ORDERED: LACTATED RINGERS 1,000 ML IV PRN (07:40)
[2019-05-19] MEDS ORDERED: LEVOFLOXACIN 250 MG/50 ML IVPB 50 ML IV ONE (07:45)
--- NOTE | 2019-05-19 08:01 | Progress Note-Pre Operative ---
Pre-Operative Progress Note H&P Reviewed The H&P was reviewed, patient examined and no changes noted. Date Seen by Provider: May 19, 2019 Time Seen by Provider: 08:01 Date H&P Reviewed: May 19, 2019 Time H&P Reviewed: 08:01 Pre-Operative Diagnosis: RT PROXIMAL URETERAL STONE KENTON DU MD May 19, 2019 08:01
[2019-05-19] MEDS ORDERED: ROCURONIUM 10 MG/ML 5 ML SYRINGE IV ONE (08:13)
[2019-05-19] MEDS ORDERED: DEXAMETHASONE 10 MG/ML (DECADRON) 1 ML VIAL ONE (08:13)
[2019-05-19] MEDS ORDERED: ONDANSETRON 4 MG/2 ML (SDV) Z0FRAN ONE (08:13)
[2019-05-19] MEDS ORDERED: PROPOFOL INJECTION 50 ML IV ONE (08:13)
[2019-05-19] MEDS ORDERED: fentaNYL INJECTION 100 MCG/2 ML AMP ONE (08:13)
[2019-05-19] MEDS ORDERED: LIDOCAINE PF 2% 5 ML (XYLOCAINE) VIAL ONE (08:13)
[2019-05-19] MEDS ORDERED: MIDAZOLAM 2 MG/2 ML (VERSED) VIAL ONE (08:13)
--- NOTE | 2019-05-19 08:15 | Progress Note-Post Operative ---
Post-Operative Progess Note Surgeon (s)/Stripping Machine Operator (s) Surgeon KENTON DU MD Stripping Machine Operator: NONE Pre-Operative Diagnosis RT PROXIMAL URETERAL STONE Post-Operative Diagnosis SAME Procedure & Operative Findings Date of Procedure 05/19/19 Procedure Performed/Findings CYSTOSCOPY WITH RT URETERAL STONE MANIPULATION AND RT ESWL Anesthesia Type GENERAL Estimated Blood Loss Estimated blood loss (mL): NONE Specimens/Packing Specimens Removed NONE Packing: NONE KENTON DU MD May 19, 2019 08:15
--- NOTE | 2019-05-19 08:17 | Discharge Inst-Urology ---
Discharge Inst-Urology Reconcile Patient Problems Problems Reviewed?: Yes Final Diagnosis RT PROXIMAL URETERAL STONE Patient Instructions/Follow Up Plan/Assessment/Instructions Please make appointment to been seen in office in 2 weeks. KUB prior to it KUB on way home Post ESWL instructions Increase oral fluids for 48 hours and then as needed. Diet and Activity as tolerated. If questions or concerns contact your physician Or seek help at emergency department. KENTON DU MD May 19, 2019 08:17
--- NOTE | 2019-05-19 08:19 | Diagnostic Imaging Report ---
Indication: Nephrolithiasis KUB 8:08 AM There are is a 5 mm calculus projecting over the right ureter between the 4th and 5th transverse processes. IMPRESSION: Right ureterolithiasis Dictated by: Dictated on workstation # [id number]
--- NOTE | 2019-05-19 08:56 | Diagnostic Imaging Report ---
Indication: Nephrolithiasis IMPRESSION: 61 seconds of fluoroscopy was used by Dr. White in surgery during lithotripsy. Dictated by: Dictated on workstation # [id number]
[2019-05-19] MEDS ORDERED: morphine INJ 10 MG/ML 1ML (SYR OR VIAL) IVP ONE (09:30)
[2019-05-19] MEDS ORDERED: MEPERIDINE (DEMEROL) INJ 50 MG/ML IVP ONE (09:30)
[2019-05-19] MEDS ORDERED: ONDANSETRON 4 MG/2 ML (SDV) Z0FRAN IVP PRN (09:30)
[2019-05-19] MEDS ORDERED: morphine INJ 10 MG/ML 1ML (SYR OR VIAL) ONE (09:58)
[2019-05-19] MEDS ORDERED: SEVOFLURANE (ULTANE) 15 ML INHAL SOLN ONE (10:01)
--- NOTE | 2019-05-19 10:08 | Anesthesia-General Post-Op ---
General Patient Condition Mental Status/LOC: Same as Preop Cardiovascular: Satisfactory Nausea/Vomiting: Absent Respiratory: Satisfactory Pain: Controlled Complications: Absent Post Op Complications Complications None Follow Up Care/Instructions Patient Instructions None needed. Anesthesia/Patient Condition Patient Condition Patient is doing well, no complaints, stable vital signs, no apparent adverse anesthesia problems. No complications reported per nursing. JOSEPH VANG CRNA May 19, 2019 10:08
--- NOTE | 2019-05-19 10:20 | NUR ---
TO AMB SURG FROM PAR PER CART. ALERT, RATES RIGHT FLANK/URETHRAL PAIN 2. PO FLUIDS AND CRACKERS PROVIDED.
[2019-05-19] MEDS ORDERED: PHENAZOPYRIDINE 100 MG (PYRIDIUM) TABLET PO ONE (10:30)
[2019-05-19] MEDS ORDERED: TRM50T PO (10:39)
[2019-05-19] MEDS ORDERED: PHEN-640 PO (10:39)
[2019-05-19] MEDS ORDERED: NITR-65 PO (10:39)
[2019-05-19] MEDS ORDERED: TMSL.4C PO (10:39)
--- NOTE | 2019-05-19 10:55 | NUR ---
TAKING PO FLUIDS AND CRACKERS WITHOUT PROBLEM. TRAMADOL 50 MG AND PYRIDIUM 200 MG GIVEN PO FOR C/O RIGHT FLANK/URETHRAL DISCOMFORT RATED 2.
--- NOTE | 2019-05-19 11:09 | Diagnostic Imaging Report ---
Indication: Right ureterolithiasis KUB 11:03 AM IMPRESSION: 5 mm right ureteral calculus appears to have migrated 2 cm down the ureter to the level of the L5 transverse process. Dictated by: Dictated on workstation # [id number]
--- NOTE | 2019-05-19 11:55 | NUR ---
PAIN RATED 1-2. HAS VOIDED 300 ML CLEAR, LIGHT RED URINE WITHOUT PROBLEM. URINE STRAINED, NO STONE FRAGMENTS PASSED. REQUESTING DISMISSAL.
--- NOTE | 2019-05-19 13:35 | OPERATIVE REPORT ---
DATE OF SERVICE: 05/19/2019 PREOPERATIVE DIAGNOSIS: Right proximal ureteral stone. POSTOPERATIVE DIAGNOSIS: Right proximal ureteral stone. OPERATION PERFORMED: Cystoscopy, right ureteral stone manipulation and right ESWL. SURGEON: Jaswinder Du MD ANESTHESIA: General. COMPLICATIONS: None. DESCRIPTION OF PROCEDURE: With the patient in lithotomy position on the cystoscopy table, genitalia were prepped and draped in the usual sterile fashion. Cystoscope was introduced into the bladder. The prostate was small. Bladder was normal. There was a sluggish efflux on the right side. Using the foroblique lens, I passed a 6-E[place]ian ureteral catheter all the way up to the stone, I pushed it back into the kidney and flushed into the kidney, removed the catheter and emptied the bladder, removed the cystoscope. The patient was moved on the ESWL table supine. Under anesthesia, the renal stone was localized. Shocks were delivered at kV of 6, a total of 2000 shocks completely fragmented the stone that was not visualized anymore. The patient received 30 mg of Toradol and 40 mg of Lasix at the end of the procedure. He tolerated the procedure and anesthesia well and was sent to recovery room in stable condition. Job ID: [id number] DocumentID: [id number] Dictated Date: 05/19/2019 09:05:48 [employer] Date: 05/19/2019 13:34:06 Dictated By: JASWINDER DU MD
== END 2019-05-19 11:55 | disposition home or self-care (01) ==
LOC: SDC 07:26
PROVIDERS: ATTEND Urology
DX: N20.1 Calculus of ureter (principal); Z88.0 Allergy status to penicillin; Z79.891 Long term (current) use of opiate analgesic
CPT/HCPCS: 74018; 87081

== ENCOUNTER → 2019-06-03 | Outpatient (CLI) | payer BC ==
[~2019-06-03] MED LIST changes: +PHEN-640 PO
--- NOTE | 2019-06-03 16:12 | Diagnostic Imaging Report ---
INDICATION: Nephrolithiasis. COMPARISON: Comparison made with prior examination from 05/19/2019. FINDINGS: The bowel gas pattern is nonspecific. The previously seen right ureteral stone is not appreciated on this exam. There does appear to be a tiny nonobstructing stone overlying the left kidney. IMPRESSION: Nonobstructing stone in the left kidney. No definitive residual stone along the expected course of the right ureter. Dictated by: Dictated on workstation # [id number]
== END ==
LOC: LAB 15:28
PROVIDERS: ATTEND Urology
DX: N20.0 Calculus of kidney (principal)
CPT/HCPCS: 74018

== ENCOUNTER 2019-07-06 14:07 | Outpatient (RCR) | payer BC | END 2019-10-04 | disposition home or self-care (01) | LOC: LAB 14:07 | PROVIDERS: ATTEND Urology | DX: N20.9 Urinary calculus, unspecified (principal) | CPT/HCPCS: 36415; 82140; 82340; 82507; 82570; 83735; 83945; 83986; 84105; 84133; 84300; 84392; 84560 ==